=== PATIENT | female | born 1975 | race Two or more races ===

== ENCOUNTER 2024-02-15 13:40 | Outpatient (CLI) | payer OTHER | END 2024-02-15 13:48 | disposition home or self-care (01) | LOC: SONOGRAMA 13:40 | PROVIDERS: ATTEND Obstetrics & Gynecology | DX: N92.4 Excessive bleeding in the premenopausal period (principal); D25.1 Intramural leiomyoma of uterus ==

== ENCOUNTER 2024-05-26 08:44 | Outpatient (CLI) | payer OTHER | END 2024-05-26 08:51 | disposition home or self-care (01) | LOC: SONOGRAMA 08:44 | PROVIDERS: ATTEND Internal Medicine | DX: E04.1 Nontoxic single thyroid nodule (principal) ==

== ENCOUNTER 2025-02-19 08:42 | Outpatient (CLI) | payer OTHER | END 2025-02-19 08:48 | disposition home or self-care (01) | LOC: SONOGRAMA 08:42 | PROVIDERS: ATTEND Obstetrics & Gynecology | DX: D25.1 Intramural leiomyoma of uterus (principal); N92.4 Excessive bleeding in the premenopausal period ==